=== PATIENT | male | born 1965 | race American Indian/Alaskan Native ===

== ENCOUNTER 2017-07-21 18:00 | Emergency (ER) | payer OTHER ==
--- NOTE | 2017-07-21 19:04 | RAD REPORT ---
EXAM DESCRIPTION: CT - Knee Right Wo Cont - 07/21/2017 6:52 pm CLINICAL HISTORY: Knee pain COMPARISON: Right knee films same day TECHNIQUE: Axial 2 millimeter thick images of the knee were obtained with sagittal and coronal refor matted images generated and reviewed. FINDINGS: No fracture is identified. No lytic, sclerotic or expansile destructive bony process seen. There is minimal spurring seen at the quadriceps insertion into the patella and minimal spurring at the patella tendon origin. Very minimal marginal spurs are present. No measurable joint effusion seen. No hematoma, mass or other suspicious soft tissue finding. Meniscu s and ligament injuries cannot be assessed on CT imaging. IMPRESSION: No fracture and no measurable joint effusion. Mild degenerative spurring changes are pre sent. No mass, hematoma or significant finding in the soft tissues.
--- NOTE | 2017-07-21 19:10 | ER ---
Nurse's Notes [facility] Name: Jarvis Cullen Age: 52 yrs Sex: Male : 1965 Arrival Date: 07/21/2017 Time: 18:02 Bed 11 Private MD: Kamlesh Paz R Diagnosis: Pain in right knee Presentation: 07/21 18:06 Presenting complaint: Patient states: i hurt my R knee in the pool and i could hardly hj move my R knee; reports numbness on the R lower leg;. Transition of care: patient was not received from another setting of care. Onset of symptoms was July 21, 2017. Initial Sepsis Screen: Does the patient meet any 2 criteria? No. Patient's initial sepsis screen is negative. Does the patient have a suspected source of infection? No. Patient's initial sepsis screen is negative. Care prior to arrival: None. 18:06 Method Of Arrival: Ambulatory hj 18:06 Acuity: LOYD 4 hj Triage Assessment: 18:09 General: Appears in no apparent distress. uncomfortable, Behavior is calm, cooperative, hj appropriate for age. Pain: Complains of pain in right knee. Historical: - Allergies: 18:09 No Known Allergies; hj - Home Meds: 18:09 Lisinopril Oral [Active]; Metformin Oral [Active]; losartan oral oral [Active]; hj Glimepiride Oral [Active]; Metoprolol Tartrate Oral [Active]; - PMHx: 18:09 Hypertension; Diabetes - NIDDM; hj - PSHx: 18:09 None; hj - Immunization history:: Adult Immunizations up to date. - Social history:: Smoking status: unknown. Screenin:43 Abuse screen: Denies threats or abuse. Denies injuries from another. Nutritional iw screening: No deficits noted. Tuberculosis screening: No symptoms or risk factors identified. Fall Risk None identified. Assessment: 18:21 General: Appears in no apparent distress. Behavior is calm, cooperative. Pain: iw Complains of pain in right knee. Neuro: Level of Consciousness is awake, alert, obeys commands. Cardiovascular: Patient's skin is warm and dry. Respiratory: Respiratory effort is even, unlabored. Derm: Skin is pink, warm \T\ dry. 19:59 Reassessment: Patient and/or family updated on plan of care and expected duration. Pain bb level reassessed. Patient is alert, oriented x 3, equal unlabored respirations, skin warm/dry/pink. knee immobilizer placed to right knee, pt states he has used crutches in the past verbalized understanding of and agrees to plan of care discharge instructions given pt assisted to exit via wheelchair accompanied by spouse. Vital Signs: 18:09 BP 124 / 88; Pulse 65; Resp 18; Temp 98.5(O); Pulse Ox 100% on R/A; Weight 105.23 kg; hj Height 6 ft. 3 in. (190.50 cm); Pain 10/10; 20:01 BP 127 / 81; Pulse 57; Resp 16 S; Temp 97(O); Pulse Ox 99% on R/A; bb 18:09 Body Mass Index 29.00 (105.23 kg, 190.50 cm) ED Course: 18:02 Patient arrived in ED. mr 18:03 Kamlesh Paz MD is Private Physician. mr 18:08 Rigo Wallis MD is Attending Physician. kdr 18:08 Triage completed. hj 18:09 Arm band placed on right wrist. hj 18:21 Emily Colmenares, RN is Primary Nurse. iw 18:[address] via wheelchair. nj 18:52 Knee Right Wo Cont In Process Unspecified. EDMS 19:08 Kamlesh Paz MD is Referral Physician. ps1 19:18 Primary Nurse role handed off by Emily Colmenares, RN rg2 19:31 Laury Coburn MD registered nurse step down. rp3 19:50 Patient has correct armband on for positive identification. bb 20:01 No provider procedures requiring assistance completed. Patient did not have IV access bb during this emergency room visit. Administered Medications: 19:50 Drug: Decadron - Dexamethasone 10 mg {Note: given PO as ordered.} Route: IVP; Site: bb Other; 20:01 Follow up: Response: No adverse reaction bb Outcome: 19:09 Discharge ordered by . ps1 20:02 Discharged to home via wheelchair, with crutches, with family. bb 20:02 Condition: stable 20:02 Discharge instructions given to patient, Instructed on discharge instructions, follow up and referral plans. medication usage, crutch walking, Demonstrated understanding of instructions, follow-up care, medications, crutch walking, Prescriptions given X 2. 20:03 Patient left the ED. bb Signatures: Dispatcher [employer] EDMS Arnol Hoffman rg2 Rigo Wallis MD MD kdr Rivera, Maria mr Dorothy Bruce RN RN Emily Pardo RN RN iw Ty Prather RN RN hj Jordan, Nathan nj Patel, Ruchita, MD MD rp3 Cristopher Torres MD MD ps1 Corrections: (The following items were deleted from the chart) 18:11 18:09 Pulse 65bpm; Resp 18bpm; Pulse Ox 100% RA; Temp 98.5F Oral; 105.23 kg; Height 6 hj ft. 3 in.; BMI: 29.0; Pain 10/10; hj 18:12 18:09 Pulse 65bpm; Resp 18bpm; Pulse Ox 100% RA; Temp 98.5F Oral; 105.23 kg; Height 6 hj ft. 3 in.; BMI: 29.0; Pain 10/10; hj
--- NOTE | 2017-07-21 19:10 | EDPHYS ---
Physician Documentation [facility] Name: Jarvis Cullen Age: 52 yrs Sex: Male : 1965 Arrival Date: 07/21/2017 Time: 18:02 Bed 11 Private MD: Kamlesh Paz R ED Physician Rigo Wallis HPI: 07/21 18:26 This 52 yrs old Other Male presents to ER via Ambulatory with complaints of Knee Pain. kdr 18:26 The patient presents with decreased range of motion, an injury, pain, that is acute, kdr tenderness, weakness, secondary to pain. The complaints affect the lateral aspect of right knee, posterior aspect of right knee and right knee. Context: The problem was sustained at home, resulted from The patient jumped into a pool jamming his right knee in the process. Since then, he has not been able to bear weight., the patient is not able to bear weight, the patient is not able to ambulate, Problem is a result from a previous injury: No. He states that he has been having mild pain in both knees for the last few weeks. He had not sought treatment for that problem. Onset: The symptoms/episode began/occurred just prior to arrival, today. Modifying factors: The symptoms are alleviated by remaining still, the symptoms are aggravated by movement, weight bearing, bending knee. Associated signs and symptoms: The patient has no apparent associated signs or symptoms. Treatment prior to arrival includes: no previous treatment. Severity of symptoms: At their worst the symptoms were moderate, severe, just prior to arrival, in the emergency department the symptoms are unchanged. The patient has not experienced similar symptoms in the past. The patient has not recently seen a physician. Historical: - Allergies: 18:09 No Known Allergies; hj - Home Meds: 18:09 Lisinopril Oral [Active]; Metformin Oral [Active]; losartan oral oral [Active]; hj Glimepiride Oral [Active]; Metoprolol Tartrate Oral [Active]; - PMHx: 18:09 Hypertension; Diabetes - NIDDM; hj - PSHx: 18:09 None; hj - Immunization history:: Adult Immunizations up to date. - Social history:: Smoking status: unknown. ROS: 18:26 Constitutional: Negative for fever, chills, and weight loss, Eyes: Negative for injury, kdr pain, redness, and discharge, Neck: Negative for injury, pain, and swelling, Cardiovascular: Negative for chest pain, palpitations, and edema, Respiratory: Negative for shortness of breath, cough, wheezing, and pleuritic chest pain, Abdomen/GI: Negative for abdominal pain, nausea, vomiting, diarrhea, and constipation, Back: Negative for injury and pain, : Negative for injury, bleeding, discharge, and swelling, Skin: Negative for injury, rash, and discoloration, Neuro: Negative for headache, weakness, numbness, tingling, and seizure activity. Psych: Negative for depression, anxiety, suicide ideation, homicidal ideation, and hallucinations, Allergy/Immunology: Negative for hives, rash, and allergies, Endocrine: Negative for neck swelling, polydipsia, polyuria, polyphagia, and marked weight changes, Hematologic/Lymphatic: Negative for swollen nodes, abnormal bleeding, and unusual bruising. 18:26 MS/extremity: Positive for injury or acute deformity, decreased range of motion, pain, tenderness, of the lateral aspect of right knee, posterior aspect of right knee and right knee. Exam: 18:26 Constitutional: This is a well developed, well nourished patient who is awake, alert, kdr and in no acute distress. Head/Face: Normocephalic, atraumatic. 18:26 Musculoskeletal/extremity: Extremities: grossly normal except: noted in the lateral aspect of right knee, posterior aspect of right knee and right knee: decreased ROM, pain, tenderness. Vital Signs: 18:09 BP 124 / 88; Pulse 65; Resp 18; Temp 98.5(O); Pulse Ox 100% on R/A; Weight 105.23 kg; hj Height 6 ft. 3 in. (190.50 cm); Pain 10/10; 20:01 BP 127 / 81; Pulse 57; Resp 16 S; Temp 97(O); Pulse Ox 99% on R/A; bb 18:09 Body Mass Index 29.00 (105.23 kg, 190.50 cm) MDM: 18:26 Data reviewed: vital signs, nurses notes, radiologic studies. Counseling: I had a kdr detailed discussion with the patient and/or guardian regarding: the historical points, exam findings, and any diagnostic results supporting the discharge/admit diagnosis, radiology results. 19:09 Patient medically screened. ps1 07/21 18:31 Order name: Knee Right Wo Cont; Complete Time: 19:08 EDMS 07/21 20:02 Order name: Crutch Training; Complete Time: 20:02 bb 07/21 20:02 Order name: Crutches; Complete Time: 20:02 bb 07/21 20:02 Order name: Knee Immobilizer; Complete Time: 20:02 Administered Medications: 19:50 Drug: Decadron - Dexamethasone 10 mg {Note: given PO as ordered.} Route: IVP; Site: Other; 20:01 Follow up: Response: No adverse reaction bb Disposition: 07/21/17 19:09 Discharged to Home. Impression: Pain in right knee. - Condition is Stable. - Discharge Instructions: Knee Pain. - Prescriptions for Anaprox DS 550 mg Oral Tablet - take 1 tablet by ORAL route every 12 hours As needed; 20 tablet. Robaxin 500 mg Oral Tablet - take 2 tablet by ORAL route every 6 hours As needed; 40 tablet. - Medication Reconciliation Form, Thank You Letter, Antibiotic Education, Prescription Opioid Use form. - Follow up: Kamlesh Paz MD; When: As needed; Reason: Recheck today's complaints, Continuance of care, Re-evaluation by your physician. Follow up: Emergency Department; When: As needed; Reason: Fever > 102 F, Worsening of condition. - Problem is new. - Symptoms are unchanged. Signatures: Dispatcher [employer] EDMS Rigo Wallis MD MD [facility] Dorothy Bruce RN RN bb Joaquin, Henry, RN RN hj Singer, Phillip, MD MD ps1 Corrections: (The following items were deleted from the chart) 18: 18:11 Knee Right 3 View+[id number] ordered. EDNJ EDMS
[2017-07-21] MEDS ORDERED: DEXAMETHASONE 4 MG/ML VIAL ONE (19:47)
[2017-07-21 20:17] VITALS: BP 127/81; TEMP 97; O2SAT 99
== END 2017-07-21 20:03 | disposition home or self-care (01) ==
LOC: ER 18:00
DX: M25.561 Pain in right knee (principal); I10 Essential (primary) hypertension; E11.9 Type 2 diabetes mellitus without complications
CPT/HCPCS: 73700; 96374; 99284

== ENCOUNTER 2017-11-10 11:15 | Day surgery (SDC) | payer OTHER ==
[2017-11-10] MEDS ORDERED: NA CHLORIDE 0.9% 1,000 ML ONE (11:43)
[2017-11-10] MEDS ORDERED: PROPOFOL 200 MG/20 ML VIAL IV ONE (13:29)
[2017-11-10 14:31] VITALS: BP 117/79; TEMP 97.2; O2SAT 97
--- NOTE | 2017-11-11 02:24 | OP ---
Surgeon: Montrell Watts MD Procedure To Be Performed: Colonoscopy. Indication For Procedure: Screening. Plan For Anesthesia: Monitored anesthesia care. Complexity: Average. Technique: After obtaining informed consent from the patient and explaining risks and complications which include, but are not limited to bleeding, infection, perforation, and anesthesia complications, the patient was placed in a left lateral position and sedation was given. Subsequently, a digital r ectal exam was performed and scope was inserted into the rectum and carefully advanced to the termina l ileum. The cecum was identified by the appendiceal orifice and the ileocecal valve. The scope was withdrawn slowly while carefully examining the mucosa. Quality of prep according to [place] prep sco re was 2+2+2 equal to 6 x 9. Scope withdrawal time was 11 minutes. Findings: Digital rectal exam was normal without any significant prostate abnormality felt, few dive rticula seen in the sigmoid. In the sigmoid, a 4 mm sessile polyp was seen. This was removed by hot biopsy. Another polyp around 6 mm was seen in the descending colon that was also removed by hot bio psy. The terminal ileum was normal. Complications: None. Tolerance To Anesthesia: Excellent. Postoperative Diagnoses: Colon polyps, diverticulosis. Retroflexion also revealed some small fall internship al hemorrhoids. Plan: 1.Await pathology results. 2.Follow up in the GI clinic in 2 weeks. 3.Repeat colonoscopy in 3 to 5 years based on pathology. 4.High-fiber diet. US/MODL Voice ID: [id number] Report ID: [id number]
== END 2017-11-10 14:39 | disposition home or self-care (01) ==
LOC: OR 11:15
PROVIDERS: ATTEND Internal Medicine Gastroenterology
PROC: 0DBN8ZX Excision of Sigmoid Colon, Via Natural or Artificial Opening Endoscopic, Diagnostic (ICD-10-PCS; 2017-11-10)
PROC: 0DBM8ZX Excision of Descending Colon, Via Natural or Artificial Opening Endoscopic, Diagnostic (ICD-10-PCS; principal; 2017-11-10 12:45)
DX: Z12.11 Encounter for screening for malignant neoplasm of colon (principal); D12.4 Benign neoplasm of descending colon; D12.5 Benign neoplasm of sigmoid colon; K57.30 Diverticulosis of large intestine without perforation or abscess without bleeding; K64.8 Other hemorrhoids; E11.9 Type 2 diabetes mellitus without complications; I10 Essential (primary) hypertension
CPT/HCPCS: 82962; 88305; J7030

== ENCOUNTER 2021-07-13 07:28 | Day surgery (SDC) | payer BC, SELFPAY ==
[2021-07-13] MEDS ORDERED: NA CHLORIDE 0.9% 1,000 ML ONE (08:00)
[2021-07-13] MEDS ORDERED: propofoL 200 MG/20 ML VIAL IV ONE (11:32)
[2021-07-13] MEDS ORDERED: LIDOCAINE 1% MPF 5 ML VIAL ONE (11:32)
[2021-07-13 14:25] VITALS: BP 115/61; TEMP 97.3; O2SAT 100
--- NOTE | 2021-07-13 23:21 | OP ---
Surgeon: Montrell Watts MD Procedure To Be Performed: Colonoscopy. Indication For Procedure: High-risk bleeding, history of polyp. Plan For Anesthesia: Monitored anesthesia care. Complexity: Average. Technique: After obtaining informed consent from the patient, explaining risks and complications whi ch include, but are not limited to, bleeding, infection, perforation, and anesthesia complications, t he patient was placed in left lateral position and sedation was given. A digital rectal exam was per formed and the scope inserted into the rectum and carefully guided up till the terminal ileum. The c ecum was identified by the appendiceal orifice and ileocecal valve. Quality of prep was limited with [place] prep score of only 3/9. Scope withdrawal time was 12 minutes. Findings: Terminal ileum appeared normal. In the ascending colon, there were 2 flat polyps around 1 cm in size with central depression that was seen. Both were completely resected after tattoo lift i njection and EMR polypectomy with the help of a snare. Both polyps were retrieved. No other gross o bstructing lesions seen; however, visualization was limited due to the prep. Retroflexion revealed g rade 1 to 2 internal hemorrhoids. Complications: None. Tolerance To Anesthesia: Excellent. Estimated Blood Loss: Zero. Postoperative Diagnoses: Poor prep, polyps. Plan: 1.Await pathology results. 2.Follow up in the GI clinic in 2 weeks. 3.Repeat colonoscopy in 2 years due to polyps and limited prep. US/MODL Voice ID: [id number] Report ID: [id number]
== END 2021-07-13 12:46 | disposition home or self-care (01) ==
LOC: OR 07:28
PROVIDERS: ATTEND Internal Medicine Gastroenterology
PROC: 0DBK8ZX Excision of Ascending Colon, Via Natural or Artificial Opening Endoscopic, Diagnostic (ICD-10-PCS; principal; 2021-07-13 09:15)
DX: Z12.11 Encounter for screening for malignant neoplasm of colon (principal); Z86.010 Personal history of colon polyps; D12.2 Benign neoplasm of ascending colon; Z20.822 Contact with and (suspected) exposure to COVID-19
CPT/HCPCS: 45385; 82947; 88305; U0003; J2704; J7030